=== PATIENT | female | born 1980 | race Caucasian/White ===

== ENCOUNTER 2024-10-23 00:35 | Day surgery (SDC) | payer OTHER, SELFPAY ==
[2024-10-11 14:39] VITALS: BMI 36.3
--- NOTE | 2024-10-11 14:49 | PC.NURSE ---
Addendum entered by Baudilio Newsome RN 10/11/24 15:12: If EKG done in past year and or BMP done in past 2 months please fax these reports to [phone]. If not we will do them day of stay. Thanks. Original Note: Report to hospital entrance 7 to the right of the Outpatient Waiting Room entrance by the Dr's parking lot. located off [facility], at time _0600_ on date _[id number]_. Planned Procedure Time: _0730_.? Time changes happen often and if your time is changed the preop area will call you the afternoon before. - You and your visitor will be asked to self-screen and do not enter if you have any COVID symptoms. Please call surgeon if you need to reschedule. - A mask is optional within the hospital at this time. Patients may have clear liquids (water, carbonated beverages, clear teas, apple juice) until 3 hours prior to surgery with a maximum of 20 ounces. - No food from midnight until time of surgery and no smoking, or chewing tobacco (or any form of nicotine). No chewing gum, candy or mints. Take only the following medications with a SIP of water on the morning of surgery: ___Amlodipine and Venlafaxine DO NOT STOP ANY OF YOUR OTHER PRESCRIPTION MEDICATIONS PRIOR TO SURGERY EXCEPT THE FOLLOWING Hold all vitamins and supplements for 3 days per anesthesiologist. Medications to discontinue per physician Date to take last dose Please no make-up, nail danish, hairspray, perfume, deodorant, or body powder the day of surgery.? No jewelry (including any body piercings) or valuables the day of surgery, leave them at home.? Please take a shower or bath the night before, or the morning of, surgery with an antibacterial soap.? Wear comfortable, loose fitting clothing.? - Jewelry must be removed prior to entering the operating room.? Rings and piercings that are not removed may be cut off. - The hospital will not accept responsibility for valuables.? - Please leave all valuables, including medications, at home the day of surgery. If you are going home after surgery, a licensed truck driver salesperson must drive you home.? - NO public transportation without another adult if you receive anesthesia. - We recommend that an adult stay with you for 24 hours following discharge. - We also recommend that you do not drive, make important decision, drink alcoholic beverages, or take any drugs that were not prescribed by your health care provider for at least 24 hours after your discharge time. Follow any additional instructions given to you from your surgeon. Telephone instructions given to __Jayashree Huertas__and asked if any additional questions and then verbalized understanding. Patient advised to call surgeon office or pre surgery nurse liaison [phone] if any additional questions.
[2024-10-23] VITALS (10 sets, daily range): BP systolic 88–126; BP diastolic 45–87; PULSE 50–64; RESP 12–22; TEMP 36.6–36.8; O2SAT 92–100
--- OUTSIDE RECORDS SUMMARY | 2024-10-23 00:39 | XMS_ITS | Clinical Summary ---
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 Active hydroCHLOROthia zide (MICROZIDE) 12.5 MG capsule Take 2 capsules (25 mg total) by mouth every morning. Active lisinopril (PRINIVIL) 20 MG tablet Take 1 tablet (20 mg total) by mouth daily. Active venlafaxine XR (EFFEXOR-XR) 150 MG 24 hr capsule Take 1 capsule (150 mg total) by mouth daily. 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 Gender Identity Not on file Sexual Orientation Not on file Last Filed Vital Signs Vital Sign Reading Time Taken Comments Blood Pressure 138/4 01/06/2024 9:55 AM CDT Pulse 54 01/06/2024 9:55 AM CDT Temperature 36.6 C (97.8 F) 01/06/2024 9:55 AM CDT Respiratory Rate 20 01/06/2024 9:55 AM CDT Oxygen Saturation 98% 01/06/2024 9:55 AM CDT Inhaled Oxygen Concentration - - Weight 126 kg (277 lb 12.8 oz) 01/06/2024 9:55 A M CDT Height 177.8 cm (5' 10 ) 01/06/2024 9:55 AM CDT Body Mass Index 39.86 01/06/2024 9:55 AM CDT Plan of Treatment Health Maintenance Due Date Last Done Comments Cervical Cancer Screening Pa p Smear (Age 30 to 64) Every 3 Years 1980 Annual Physical 12/17/1983 Hepatitis C 1998 DTaP, Tdap and Td Vaccines ( 1 - Tdap) 12/17/1999 Hepatitis B Vaccines (1 of 3 - 19+ 3-dose series) 12/17/1999 Cervical Cancer Screening Pa p with HPV Testing (Age 30 to 64) Every 5 Years 2010 Cervical Cancer Screening with HPV 2010 Mammogram Screening 2020 COVID-19 Vaccine ( - 2023-2 5 season) 2024 Influenza Adult (#1) 2024 PHQ-2 (Physician [place]) 08/01/2024 01/06/2024 PHQ-2 (Physician [place]) 01/05/2025 01/06/2024 HPV Vaccines Aged Out No longer eligi ble based on patient's age to complete this topic Meningococcal B Vaccine Aged Out No l onger eligible based on patient's age to complete this topic Meningococcal Vaccine Aged Out No sebastian lew eligible based on patient's age to complete this topic Pneumococcal Vaccine: Pediat rics (0 to 5 Years) and At-Risk Patients (6 to 64 Years) Aged Out No longer eligi ble based on patient's age to complete this topic RSV Immunizations Under 20 Months Aged Out No longer eligible based on patient's age to complete this topic Insurance [id number] Care 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
--- NOTE | 2024-10-23 05:58 | ECG_ITS ---
Test Date: 2024-10-23 07:05:34 Measurements Intervals [place] Rate: 51 P: 10 NH: 182 QRS: 9 QRSD: 109 T: 29 QT: 460 QTc: 424 Interpretive Statements SINUS BRADYCARDIA POSSIBLE RIGHT VENTRICULAR CONDUCTION DELAY [RSR (QR) IN V1/V2] No previous ECG available for comparison Electronically Signed On 10-23-2024 16:12:33 CDT by Lexie Otoole M.D.
[2024-10-23 06:45] LABS: Anion Gap 9 mmol/L (4-12); Blood Urea Nitrogen 21 mg/dL (7-17); Calcium 9.6 mg/dL (8.4-10.2); Carbon Dioxide 27 mmol/L (22-30); Chloride 103 mmol/L (98-107); Estimated CRCL calculation 101 ml/min; Estimated Glomerular Filt Rate > 60; Glucose 89 mg/dL (65-110); Potassium 4.1 mmol/L (3.4-5.0); Sodium 139 mmol/L (137-145)
--- NOTE | 2024-10-23 06:49 | WPDANESEPPF ---
Anes - Initial Pre Proc Eval Procedure: Operation Date: 10/23/24 07:30 Proposed Procedures p Laparoscopic Incisional Hernia Repair with Mesh, Davinci Assisted - Rinku Bland DO Date/Time: 10/23/24 06:49 Surgeon: Rinku Bland DO Pre Op Diagnosis: incisional hernia (4cm) Patient Data Age: 43 Gender: F Height: 1.75 m Weight: 111.7 kg Allergies Allergy/AdvReac Type Severity Reaction Status Date / Time Penicillins Allergy Unknown Unknown Verified 10/11/24 14:33 brexpiprazole (From Rexulti) AdvReac Intermediate Anxiety Verified 10/11/24 14:33 Home Medications ?Medication ?Instructions ?Recorded ?Confirmed ?Type amlodipine 5 mg tablet 5 mg PO DAILY 10/11/24 10/11/24 History hydrochlorothiazide 25 mg tablet 25 mg PO DAILY 10/11/24 10/11/24 History lisinopril 20 mg tablet 20 mg PO DAILY 10/11/24 10/11/24 History venlafaxine 150 mg tablet,extended 150 mg PO DAILY 10/11/24 10/11/24 History release 24 hr Laboratory Tests 10/23/24 06:30 Sodium 139 mmol/L (137-145) Potassium 4.1 mmol/L (3.4-5.0) Chloride 103 mmol/L (98-107) Carbon Dioxide 27 mmol/L (22-30) Anion Gap 9 mmol/L (4-12) BUN 21 H mg/dL (7-17) Creatinine 0.84 mg/dL (0.7-1.0) Estim Creat Clear Calc 101 ml/min Estimated GFR > 60 (59 - ) Glucose 89 mg/dL (65-110) Calcium 9.6 mg/dL (8.4-10.2) Blood Type Pending Antibody Screen Pending Patient hx anesthesia problems: none Family hx anesthesia problems: none Results Review: All pre-operative results and documents have been reviewed as part of the pre-operative evaluation. [facility] Past Medical History Medical History (Updated 10/23/24 @ 06:50 by Mo Osorio MD) Obesity HTN (hypertension) Surgical History Surgical History (Updated 06/25/24 @ 13:45 by Danielle Duenas) Hx of section 10/05/2019 Family History Family History Mother Alcoholism Asthma Cancer Hypertension Depression Heart disease Father Diabetes mellitus Depression Social History Social History Smoking status: Former smoker Alcohol use details: Hx severe alcohol abuse disorder. Substance use type: amphetamines and methamphetamine Do You Feel Safe in your Home?: Yes Lack of Transportation: No Lack of Food: Never True Current Housing: Decline to Answer Concerned About Future Housing: No Difficulty Paying Gas/Electric Bills: No Difficulty Paying for Meds: No Currently Unemployed: No Education: High School Diploma/GED Difficulty w/ Childcare or Family Care: Decline to Answer Living arrangements: incarcerated Anes - Eval Final PreProcedure Day of Procedure 10/23/24 06:49 Patient weight: obese Heart: regular rate and rhythm Lungs: clear to auscultation Airway: Mallampati scale class II and special considerations poor dentition Neurological: alert and oriented Last oral intake: >/= 8 hours ASA classification: III Emergent: no Anesthetic plan: proceed Anesthesia type and monitoring: general ETT and standard monitoring Results Review: All pre-operative results and documents have been reviewed as part of the pre-operative evaluation. Informed Consent: The patient's anesthetic plan and its attendant risks and benefits were discussed with the patient/family/POA. Questions were solicited and answers provided to the satisfaction of the patient/family/POA.
[2024-10-23] MEDS: LACTATED RINGERS 1,000 ML 30 ML IV CONT ×3 (07:00→10:29)
[2024-10-23] MEDS: KETOROLAC 15 MG/ML VIAL (*BKC) IV PUSH (07:00)
[2024-10-23] MEDS: ACETAMINOPHEN 500 MG TABLET 1000 MG PO (07:00)
--- NOTE | 2024-10-23 07:18 | P.HP_ITS ---
H&P: HPI History of Present Illness Date/Time: 10/23/24 07:18 Chief Complaint: Incisional hernia Narrative: 43 yo woman presents for incisional hernia repair. She has hx of multiple c- sections and developed a hernia at the previous site. A CT was obtained which showed evidence of an incisional hernia containing bowel. Review of Systems Review of Systems: All systems reviewed & are unremarkable except as noted in HPI and below Constitutional: Constitutional: Denies chills, Denies fever(s), Denies headache(s) and Denies weight loss Eyes: Eyes: Denies change in vision ENT: Denies dizziness, Denies headache(s), Denies neck mass and Denies throat swelling Cardiovascular: Cardiovascular: Denies chest pain, Denies lightheadedness and Denies dyspnea Respiratory: Respiratory: Denies cough, Denies dyspnea and Denies wheezing Gastrointestinal: Gastrointestinal: Denies abdominal pain, Denies change in bowel habits, Denies nausea and Denies vomiting Genitourinary: Genitourinary: Denies hematuria and Denies dysuria Musculoskeletal: Musculoskeletal: Reports as per HPI Integumentary/Breasts: Skin/Breast: Reports as per HPI Neurologic: Denies dizziness and Denies headache(s) Allergic/Immunologic: Allergic/Immunologic: Denies throat swelling and Denies wheezing [facility] Past Medical History Medical History (Updated 10/23/24 @ 06:50 by Mo Osorio MD) Obesity HTN (hypertension) Surgical History Surgical History (Updated 06/25/24 @ 13:45 by Danielle Duenas) Hx of section 10/05/2019 Family History Family History Mother Alcoholism Asthma Cancer Hypertension Depression Heart disease Father Diabetes mellitus Depression Social History Social History Smoking status: Former smoker Alcohol use details: Hx severe alcohol abuse disorder. Substance use type: amphetamines and methamphetamine Do You Feel Safe in your Home?: Yes Lack of Transportation: No Lack of Food: Never True Current Housing: Decline to Answer Concerned About Future Housing: No Difficulty Paying Gas/Electric Bills: No Difficulty Paying for Meds: No Currently Unemployed: No Education: High School Diploma/GED Difficulty w/ Childcare or Family Care: Decline to Answer Living arrangements: incarcerated Meds Home Medications and Allergies Home Medications ?Medication ?Instructions ?Recorded ?Confirmed ?Type amlodipine 5 mg tablet 5 mg PO DAILY 10/11/24 10/11/24 History hydrochlorothiazide 25 mg tablet 25 mg PO DAILY 10/11/24 10/11/24 History lisinopril 20 mg tablet 20 mg PO DAILY 10/11/24 10/11/24 History venlafaxine 150 mg tablet,extended 150 mg PO DAILY 10/11/24 10/11/24 History release 24 hr Allergies Allergy/AdvReac Type Severity Reaction Status Date / Time Penicillins Allergy Unknown Unknown Verified 10/11/24 14:33 brexpiprazole (From Rexulti) AdvReac Intermediate Anxiety Verified 10/11/24 14:33 Exam Const: General: no acute distress and alert Orientation/consciousness: patient oriented x3 HENMT: Head: normocephalic and atraumatic Ears: hearing grossly normal bilaterally Face/Nose/Sinus: Normal nares present Mouth: Yes Normal oral and palatal mucosa present Eyes: Periorbital: periorbital findings normal Sclera: sclerae normal EOM: EOMs intact bilaterally Neck: Neck: normal visual inspection, no lymphadenopathy and trachea midline Chest: Chest palpation & inspection: normal inspection of the chest Resp: Effort & Inspection: normal respiratory effort Auscultation: clear to auscultation bilaterally Cardio: Jugular venous distension: no JVD Rate: regular rate Rhythm: regular rhythm Heart sounds: S1 normal heart sound present and S2 normal heart sound present Peripheral pulses: Peripheral pulses 2+ throughout GI: Inspection: normal to inspection GI Palp: Yes Soft to palpation, No Tenderness to palpation present (GI), No Guarding due to palpation present (GI), Yes Hernia present incisional 3-10 cm (lower midline) and No Rebound tenderness present Percussion: Yes normal to percussion Auscultation: normal bowel sounds : General: Yes no CVA tenderness Back/Spine/Pelvis: Back: no CVA tenderness Neuro: General: patient oriented x3, no focal motor deficits and CN's II-XI intact bilaterally Cognition (Neuro): normal cognition Speech: normal speech Motor exam (neuro): 5/5 motor strength present throughout Extrem: General: capillary refill normal and no clubbing, cyanosis or edema H&P: Results Labs Labs: [facility] 10/23/24 06:30 Sodium 139 Potassium 4.1 Chloride 103 Carbon Dioxide 27 BUN 21 H Creatinine 0.84 Glucose 89 Calcium 9.6 Assessment and Plan Assessment and plan (1) Incisional hernia without mention of obstruction or gangrene: Qualifiers: Obstruction and gangrene presence: without obstruction or gangrene Qualified Code(s): K43.2 - Incisional hernia without obstruction or gangrene Code(s): K43.2 - Incisional hernia without obstruction or gangrene Status: Acute Assessment and Plan: I have recommended laparoscopic incisional hernia repair with mesh, da Hawa assisted. I have discussed the procedure, risks, benefits, and alternatives with the patient. All questions answered. No changes since last seen in office.
--- NOTE | 2024-10-23 07:18 | WPDHPUPDATE1 ---
History and Physical Update Update Date/Time: 10/23/24 07:18 History and Physical has been reviewed, including an updated exam of the patient. There are NO changes in the patient's condition. Risks, benefits, and alternatives have been discussed and questions answered. Patient agrees to proceed with procedure.
[2024-10-23] MEDS: ceFAZolin 2 GM/D5W 50 ML 2 GM/50 ML BAG IVPB (07:29)
[2024-10-23 07:38] LABS: BEDSIDEPREGUCG Negative (Negative)
[2024-10-23] MEDS: BUPIVACAINE/EPINEPHRINE 0.5% 50 ML VIAL 30 ML INFILTRATE (07:55)
--- NOTE | 2024-10-23 09:26 | W.PM.PROC2 ---
Procedure Note - Detailed Date of Procedure 10/23/24 Pre-op Diagnosis incisional hernia Post-op Diagnosis Same (4 cm incisional hernia) Procedure Performed Laparoscopic 4 cm incisional hernia repair with mesh, da Hawa assisted Surgeon Rinku Bland DO Anesthesia General and Local (0.5% bupivacaine with epinephrine) Indications This is a 43-year-old woman who presented with a lower abdominal bulge that was causing pain. She has a history of multiple C-sections and noted a bulge just to the right of midline at the scar from the previous . A CT had been obtained at [facility] and this showed evidence of a lower midline hernia containing a loop of bowel. Discussions were made with the patient about treatment options and decision was made to proceed with robotic assisted laparoscopic incisional hernia repair with mesh. Findings Robotic assisted laparoscopic 4 cm incisional hernia repair with mesh was performed. Patient was found to have a lower midline 4 cm wide incisional hernia with some associated diastasis of the rectus muscle. The peritoneum along the lower part of the suprapubic region was taken down to expose the pubic arch and dissected into the space of Retzius. This allowed me to take down the bladder flap to allow adequate overlap of the mesh. A robotic intraperitoneal onlay mesh technique was then utilized for repair. A Ventralight ST 20 cm x 15 cm mesh was placed. No specimens were obtained for pathology. Description of Procedure Procedure as well as risks, benefits, and alternatives were discussed with the patient. Written consent was obtained and placed in chart prior to procedure. Patient was brought back to surgical suite. She was placed supine on operating table. Time-out was done to confirm patient and procedure. She was then intubated by the anesthesia department. Her abdomen was prepped and draped in sterile fashion using chlorhexidine prep. A 5 millimeter incision was made in the left upper quadrant, and a 5 millimeter Optiview trocar was advanced through the abdominal layers under direct visualization. Once inside the abdominal cavity, carbon dioxide insufflation was used to create a pneumoperitoneum. Her abdomen was inspected. An 8 millimeter incision was made in the right upper quadrant, and an 8 millimeter robotic trocar was placed under direct visualization. Another 8 millimeter incision was made in the supraumbilical midline, and an 8 millimeter robotic trocar was placed under direct visualization. 0.5% bupivacaine with epinephrine was infiltrated around each port site. The 5 millimeter port was removed, and an 8 mm robotic trocar was placed under direct visualization. The robotic arms were brought up to the patient's bedside and secured to the ports. The camera and instruments were inserted, and I then moved over to the robotic console and took control of the camera and instruments. After careful thorough inspection of the abdominal cavity, I began my dissection at the hernia. There was some omentum scarred up to the hernia sac which was carefully taken down using scissors with electrocautery. The suprapubic peritoneum was then dissected posteriorly and caudally using scissors with electrocautery. This allowed me to enter into the space of reduce this and dissect the dome of the bladder posteriorly to allow for mesh overlap. I then measured the hernia size. The hernia measured 4 cm wide by about 4 cm vertically. The fascia was closed using an 0-Stratafix running suture in a vertical fashion. A Ventralight ST 15 cm x 20 cm mesh was then placed within the abdominal cavity. This was oriented vertically with the mesh centered on the hernia defect. The mesh was then secured at the center and 4 corners using 3-0 Vicryl simple interrupted sutures. The entire perimeter of the mesh was then secured to the abdominal wall using 2-0 Stratafix running absorbable suture. The peritoneum was then pexy to the inferior portion of the mesh using 3 0 V lock running absorbable suture. The repair was inspected, and one final inspection was made around the abdominal cavity. The robotic instruments were then removed, and the robotic arms were disengaged from the trocars. The ports were then removed under direct visualization, the camera was removed, and the pneumoperitoneum was released. The skin of the incisions was then approximated using 4-0 Monocryl subcuticular suture. Exofin glue was then applied on top. The patient was then awakened from anesthesia, extubated, and transferred to recovery. Implants Ventralight ST 20 cm x 15 cm mesh Estimated Blood Loss 5 Complications No immediate complications Condition Stable Disposition Same day [facility] Billing Surgery - Charge Forward: Surgery Billing
[2024-10-23] MEDS: fentaNYL CITRATE INJ (*CRX) 100 MCG/2 ML VIAL 25 MCG IV PUSH ×4 (10:05→10:35)
[2024-10-23] MEDS: ONDANSETRON INJ 4 MG/2 ML VIAL IV PUSH (10:05)
[2024-10-23] MEDS: oxyCODONE HCL (*CRX) 5 MG TAB IR PO (11:00)
== END 2024-10-23 11:40 | disposition home or self-care (01) ==
PROVIDERS: Anesthesiology; Visit Provider Surgery
PROC: (CPT 49593; principal; 2024-10-23 07:30)
DX: K43.2 Incisional hernia without obstruction or gangrene (principal); I10 Essential (primary) hypertension; R00.1 Bradycardia, unspecified; E66.9 Obesity, unspecified; Z68.33 Body mass index [BMI] 33.0-33.9, adult; Z98.890 Other specified postprocedural states; Z87.891 Personal history of nicotine dependence; Z80.9 Family history of malignant neoplasm, unspecified; Z82.49 Family history of ischemic heart disease and other diseases of the circulatory system
CPT/HCPCS: 49593; S2900; 36415; 80048; 86850; 86900; 86901; 93005; A9270; C1781; J0461; J0690; J1100; J1171; J1596; J1885; J2003; J2250; J2405; J2704; J3010; J7030; J7120